=== PATIENT | male | born 1970 | race Hispanic/Latino ===

== ENCOUNTER 2024-01-15 14:44 | Emergency (ER) | payer BC ==
[~2024-01-15] VITALS: Ht 180.3 cm; Wt 103.0 kg
[2024-01-15 15:28] VITALS: PULSE 114; RESP 18; TEMP 98.3; O2SAT 100
[2024-01-15] MEDS: KETOROLAC TROMETHAMINE 30 MG/ML VIAL IM STA (17:47)
[2024-01-15] MEDS ORDERED: NAPROXEN250 MG PO (17:54)
== END 2024-01-15 18:48 | disposition home or self-care (01) ==
LOC: ER 14:49
DX: M79.604 Pain in right leg (principal); S76.111A Strain of right quadriceps muscle, fascia and tendon, initial encounter; Y93.01 Activity, walking, marching and hiking; Y92.89 Other specified places as the place of occurrence of the external cause; I10 Essential (primary) hypertension; E11.9 Type 2 diabetes mellitus without complications; K21.9 Gastro-esophageal reflux disease without esophagitis
CPT/HCPCS: 73502; 73562; 99283; J1885